=== PATIENT | male | born 1950 | race Caucasian/White ===

== ENCOUNTER → 2018-04-03 | Outpatient (CLI) | payer MEDICARE ==
[~2018-04-03] VITALS: Ht 177.8 cm; Wt 90.9 kg
[~2018-04-03] MED LIST: AMBIEN10 MG; ATORVASTATIN CA10 MG PO; DIOVAN 40MG40 MG PO; PROPRANOLOL HYD60 M1
[2018-04-03 15:16] VITALS: BP 144/83
== END ==
LOC: LAB 14:25 → AMSURD 14:25
DX: R07.89 Other chest pain (principal); R05 Cough; R06.02 Shortness of breath

== ENCOUNTER → 2019-03-16 | Outpatient (CLI) | payer MEDICARE ==
[2018-04-03 15:16] VITALS: BP 144/83
[2019-03-16 18:21] LABS: BASO # 0.1 (0.02-0.10); EOS # 0.1 (0.04-0.40); EOS % 0.7 % (0.0-4.0); HEMATOCRIT 41.7 % (42.0-52.0); HEMOGLOBIN 13.7 g/dL (13.5-18.0); LYMPH# 3.7 (1.50-4.00); MEAN CELL VOLUME 88 fl (78-100); MEAN CORPUSCULAR HEMOGLOBIN 29 pg (27-31); MEAN CORPUSCULAR HGB CONC 33 g/dL (33-37); MEAN PLATELET VOLUME 9.8 fl (7.4-10.4); PLATELET COUNT 262 K/mm3 (130-400); RED BLOOD COUNT 4.76 M/mm3 (4.20-5.60); RED CELL DISTRIBUTION WIDTH 13.4 % (11.5-14.5); WHITE BLOOD COUNT 14.8 K/mm3 (4.8-10.8)
[2019-03-16 18:32] LABS: MONO # 1.6 (0.20-0.80); NEU # 9.4 (1.40-6.50)
[2019-03-16 18:40] LABS: ALBUMIN 4.3 g/dL (3.4-4.8); POTASSIUM 3.6 mmol/L (3.5-5.1)
[2019-03-16 18:41] LABS: CALCIUM 9.6 mg/dL (8.3-10.5)
[2019-03-16 18:42] LABS: TOTAL PROTEIN 7.4 g/dL (6.2-8.1)
[2019-03-16 18:44] LABS: TOTAL BILIRUBIN 0.5 mg/dL (0.2-1.2)
[2019-03-16 19:37] LABS: ERYTHROCYTE SEDIMENTATION RATE 19 mm/hr (0-20)
== END ==
LOC: LAB 18:05
PROVIDERS: Nurse Practitioner
DX: M06.9 Rheumatoid arthritis, unspecified (principal)

== ENCOUNTER 2019-04-10 21:36 | Emergency (ER) | payer MEDICARE ==
[~2019-04-10] VITALS: Ht 177.8 cm; Wt 86.4 kg
[~2019-04-10 21:36] MED LIST changes: -AMBIEN10 MG; +AMBIEN10 MG PO; -ATORVASTATIN CA10 MG PO; +ATORVASTATIN CA20 MG PO; +PROPRANOLOL HCL20 M2 PO; -PROPRANOLOL HYD60 M1
[2019-04-10] MEDS ORDERED: COUMADIN 3MG3 MG/TAB PO (21:52)
[2019-04-10] MEDS ORDERED: COUMADIN 4MG4 MG/TAB PO (21:53)
[2019-04-10] MEDS ORDERED: VALSARTAN AND H1 TA4 PO (22:11)
[2019-04-10] MEDS ORDERED: SIMPONI50 MG/0.5 SC (22:21)
[2019-04-10 22:47] LABS: PROTHROMBIN TIME 26.1 SECONDS (9.0-12.0)
[2019-04-10 23:15] VITALS: BP 154/91
== END 2019-04-10 23:15 | disposition home or self-care (01) ==
LOC: ED 21:36
PROVIDERS: Family Medicine
DX: S00.411A Abrasion of right ear, initial encounter (principal); I10 Essential (primary) hypertension; M06.9 Rheumatoid arthritis, unspecified; Z79.01 Long term (current) use of anticoagulants; X58.XXXA Exposure to other specified factors, initial encounter

== ENCOUNTER 2019-10-16 20:42 | Emergency (ER) | payer MEDICARE ==
[~2019-10-16] VITALS: Ht 177.8 cm; Wt 82.7 kg
[~2019-10-16 20:42] MED LIST changes: +COUMADIN 3MG3 MG/TAB PO; +COUMADIN 4MG4 MG/TAB PO; +SIMPONI50 MG/0.5 SC; +VALSARTAN AND H1 TA4 PO
[2019-10-16 21:56] LABS: PROTHROMBIN TIME 29.7 SECONDS (9.0-12.0)
[2019-10-16 22:35] VITALS: BP 131/90
== END 2019-10-16 22:35 | disposition home or self-care (01) ==
LOC: ED 20:42
PROVIDERS: Family Medicine
DX: H92.21 Otorrhagia, right ear (principal); I10 Essential (primary) hypertension; M06.9 Rheumatoid arthritis, unspecified; Z79.01 Long term (current) use of anticoagulants; Z86.711 Personal history of pulmonary embolism